=== PATIENT | male | born 2000 | race Hispanic/Latino ===

== ENCOUNTER 2024-03-22 08:31 | Inpatient (IN) | payer SELFPAY ==
[2024-03-22] MEDS ORDERED: Ketorolac Tromethamine 30 MG (1 mL) VIAL ONE (09:08)
[2024-03-22 09:24] LABS: #Basophils 0.09 10x3/uL (0.0-0.2); %Eosinophils 0.5 % (0.0-10.0); %Monocytes 9.1 % (0.0-10.0); %Neutrophils 78.1 % (42.0-75.0); Hematocrit 42.5 % (42.0-52.0); Hemoglobin 15.4 g/dL (14.0-18.0); Mean Corpuscular HGB CONC 36.2 g/dL (32.0-36.0); Mean Corpuscular Hemoglobin 33.2 pg (27.0-31.0); Mean Corpuscular Volume 91.6 fL (78.0-98.0); Mean Platelet Volume 9.2 fL (7.4-10.4); Platelet Count 344 10x3/uL (130-400); RBC Distribution Width 12.1 % (11.5-14.5); Red Blood Cell (RBC) Count 4.64 mill/uL (4.70-6.10)
[2024-03-22 09:40] LABS: ALT (SGPT) 37 U/L (8-55); AST (SGOT) 24 U/L (5-34); Albumin 3.6 g/dL (3.5-5.0); Alkaline Phosphatase 61 U/L (40-110); Anion Gap 15 mmol/L (10-20); BUN (Urea Nitrogen) 7 mg/dL (8.9-20.6); Bilirubin, Total 0.3 mg/dL (0.2-1.2); Calc. Creatinine Clearance 0 mL/min (70-130); Calcium 9.7 mg/dL (7.8-10.44); Carbon Dioxide 23 mmol/L (22-29); Chloride 101 mmol/L (98-107); Estimated GFR 125; Globulin 3.9 g/dL (2.4-3.5); Glucose 107 mg/dL (70-105); Potassium 3.5 mmol/L (3.5-5.1); Protein, Total 7.5 g/dL (6.0-8.3); Sodium 135 mmol/L (136-145)
[2024-03-22 09:45] LABS: Troponin I 0.015 ng/mL (< 0.028)
[2024-03-22] MEDS ORDERED: Iopamidol-370 76% 500 ML MDV (1 ML CHARGE) ONE (11:32)
[2024-03-22 12:15] LABS: Bacteria/HPF None Seen HPF (None Seen); Bilirubin Negative (Negative); Blood, Urine Negative (Negative); CAUTI Indications for Culture < 2yrs of age; Clarity Clear (Clear); Glucose, Urine (Dipstick) Normal (Negative); Ketone, Urine Negative (Negative); Leukocyte Negative Leu/uL (Negative); Nitrite Negative (Negative); Protein, Urine (Dipstick) Negative (Neg-Trace); RBC/HPF 0-3 HPF (0-3); Specific Gravity, Urine 1.044 (1.002-1.036); Squamous Epithelial None Seen HPF (0-3); Urobilinogen Normal mg/dL (Less than 2); WBC/HPF 0-3 HPF (0-3); pH, Urine 7.5 (5.0-9.0)
[2024-03-22 12:16] LABS: Urine Culture Reflex Yes Yes
[2024-03-22] MEDS: NS 0.9% w/ 20 MEQ KCL 1,000 ML/1,000 ML BAG IV SCH (16:02)
[2024-03-22] MEDS ORDERED: Acetaminophen 650 MG Suppository PR PRN (17:43)
[2024-03-22 18:45] VITALS: BMI 28.9
[2024-03-22 19:07] LABS: Influenza A by NAA Not Detected (NotDetected); Influenza B by NAA Not Detected (NotDetected); SARS-CoV-2 NAA Rapid Test Not Detected (NotDetected)
[2024-03-22 19:07] LABS: HIV (1/2) Antibody/Antigen NONREACTIVE (NonReactive); HIV 1/2 INDEX 0.05 S/CO (<1.00)
[2024-03-22 19:12] LABS: Legionella Urinary Ag Negative (Negative); Strep pneumo Urine Ag NEGATIVE (NEGATIVE)
[2024-03-22] MEDS: Acetaminophen 325 MG TAB PO PRN (20:00)
[2024-03-22] MEDS: Sodium Chloride 0.9% 500 ML IV SCH (21:35)
[2024-03-22] MEDS: Acetaminophen 325 MG TAB PO SCH (21:35)
[2024-03-22] MEDS: Cefepime 2 GM in Sodium Chloride 0.9% 100 ML IVPB SCH (22:07)
[2024-03-22 22:41] LABS: Amphetamine Detected (NotDetected); Barbiturates Screen Not Detected (NotDetected); Benzodiazepine Screen Not Detected (NotDetected); Cocaine Metabolite Screen Not Detected (NotDetected); Methadone Not Detected (NotDetected); Methamphetamine Detected (NotDetected); Opiate Screen Not Detected (NotDetected); Oxycodone Screen Not Detected (NotDetected); Phencyclidine (PCP) Not Detected (NotDetected); THC/Cannabinoid Screen Detected (NotDetected); Tricyclic Screen Not Detected (NotDetected)
[2024-03-22] MEDS: Vancomycin (BATCH) 2 GM in Premix 1 BAG IVPB SCH (22:42)
[2024-03-22] MEDS: Ibuprofen 200 MG TAB PO PRN (23:49)
[2024-03-23] MEDS: Vancomycin (BATCH) 1.25 GM in Premix 1 BAG IVPB SCH (06:33)
[2024-03-23 08:09] LABS: Vancomycin, Random 46.1 ug/mL (See Comment)
[2024-03-23] MEDS ORDERED: Vancomycin 1 GM in Premix 1 BAG IVPB SCH (09:00)
[2024-03-23 14:00] LABS: Reference Lab Name LABCORP
[2024-03-23] MEDS ORDERED: Vancomycin HCl 750 MG in Sodium Chloride 0.9% 250 ML 250 ML IVPB SCH (14:00)
[2024-03-23] MEDS ORDERED: Vancomycin (BATCH) 1.25 GM in Premix 1 BAG IVPB SCH (16:00)
[2024-03-23] MEDS: Ketorolac Tromethamine 30 MG (1 mL) VIAL IVP SCH (20:53)
[2024-03-23] MEDS: Sodium Chloride 0.9% 500 ML IV SCH (20:53)
[2024-03-23] MEDS: Doxycycline 100 MG CAP PO SCH (20:54)
[2024-03-24] MEDS: Ibuprofen 200 MG TAB PO PRN (05:39)
[2024-03-24] MEDS: traMADol HCl 50 MG TAB PO PRN (05:39)
[2024-03-24] MEDS ORDERED: Iopamidol-370 76% 500 ML MDV (1 ML CHARGE) ONE (07:38)
[2024-03-24 08:42] LABS: Hematocrit 41.9 % (42.0-52.0); Hemoglobin 14.8 g/dL (14.0-18.0); Mean Corpuscular HGB CONC 35.3 g/dL (32.0-36.0); Mean Corpuscular Hemoglobin 32.5 pg (27.0-31.0); Mean Corpuscular Volume 92.1 fL (78.0-98.0); Mean Platelet Volume 9.4 fL (7.4-10.4); Platelet Count 301 10x3/uL (130-400); RBC Distribution Width 12.2 % (11.5-14.5); Red Blood Cell (RBC) Count 4.55 mill/uL (4.70-6.10)
[2024-03-24 08:57] LABS: ALT (SGPT) 47 U/L (8-55); AST (SGOT) 37 U/L (5-34); Alkaline Phosphatase 68 U/L (40-110); Anion Gap 15 mmol/L (10-20); BUN (Urea Nitrogen) 9 mg/dL (8.9-20.6); Bilirubin, Total 0.2 mg/dL (0.2-1.2); Calc. Creatinine Clearance 148 mL/min (70-130); Calcium 8.9 mg/dL (7.8-10.44); Carbon Dioxide 24 mmol/L (22-29); Chloride 101 mmol/L (98-107); Estimated GFR 124; Globulin 3.8 g/dL (2.4-3.5); Glucose 103 mg/dL (70-105); Potassium 4.1 mmol/L (3.5-5.1); Protein, Total 6.8 g/dL (6.0-8.3); Sodium 136 mmol/L (136-145)
[2024-03-24 09:11] LABS: Band 9 % (5-11); Large Platelets 1.9 % (0-5); Lymphocytes 20 % (21-51); Metamyelocyte 1 % (0-0); Monocytes 8 % (0-10); Neutrophil 50 % (42-75); Platelet Adequacy Comment Platelets Normal; RBC Morphology Within Normal Limits; Reactive Lymphocytes 13 % (0-10)
[2024-03-24 10:24] LABS: HBCM Index 0.08 S/CO (0-0.79); HBsAg Index 0.41 S/CO (0-0.99); Hep A IgM AB NONREACTIVE (NonReactive); Hep A IgM S/CO 0.18 S/CO (0-0.79); Hep B Surf Ag NONREACTIVE S/CO (NonReactive); Hep C IgG Ab NONREACTIVE S/CO (NonReactive); Hep C Index 0.05 S/CO (0-0.79); Hepatitis B Core IgM Abs NONREACTIVE S/CO (NonReactive)
[2024-03-25] MEDS: Meropenem 1 GM in Sodium Chloride 0.9% 100 ML IVPB SCH ×2 (00:22→08:23)
[2024-03-25] MEDS ORDERED: Meropenem 1 GM in Sodium Chloride 0.9% 100 ML IVPB SCH (06:00)
[2024-03-25] MEDS: methylPREDNISolone Sod Succ 40 MG VIAL IVP SCH (08:23)
[2024-03-25 15:45] LABS: Reference Lab Name KARIUS LABORATORIES
[2024-03-25 15:46] LABS: Ref Lab Test Ordered KARIUS TEST
[2024-03-27 15:18] LABS: Cytoplasmic (C-ANCA) <1:20 titer (Neg:<1:20); Perinuclear (P-ANCA) <1:20 titer (Neg:<1:20)
[2024-03-28 04:38] LABS: QuantiFERON-TB Gold Plus Negative (Negative)
[2024-03-28 13:15] VITALS: BP 104/64; TEMP 99.8
[2024-03-28 13:24] LABS: ANA Symphony (Qualitative) Negative (Negative); ANA Symphony (Quantitative) 0.2 Ratio (< 0.7 Negative); EliA RAS New Method **** NEW METHOD ****; Jo-1 IgG Antibody Less than 0.3 EliAU/mL (<7 Negative); RNP70 IgG Antibody 0.6 EliAU/mL (<7 Negative); Rheumatoid Factor IgA Antibody 4.8 IU/mL (<14 Negative); Rheumatoid Factor IgM Antibody 1.1 IU/mL (<3.5 Negative)
[2024-03-30 15:37] LABS: Histoplasma Antigen - Urine Negative (<0.2 ng/mL)
== END 2024-03-28 13:59 | disposition home or self-care (01) | DRG 178 ==
LOC: ERS 08:31 → SURG B 14:48
PROVIDERS: ADMIT Internal Medicine; ATTEND Internal Medicine
DX: B39.2 Pulmonary histoplasmosis capsulati, unspecified (principal); D84.9 Immunodeficiency, unspecified; J67.9 Hypersensitivity pneumonitis due to unspecified organic dust; Z85.028 Personal history of other malignant neoplasm of stomach; F17.210 Nicotine dependence, cigarettes, uncomplicated; Z79.899 Other long term (current) drug therapy; F19.10 Other psychoactive substance abuse, uncomplicated
CPT/HCPCS: 36415; 71046; 71275; 74177; 80053; 80074; 80202; 80306; 81001; 83520; 83605; 84145; 84484; 85025; 85379; 86037; 86038; 86141; 86225; 86235; 86480; 87040; 87081; 87086; 87116; 87206; 87385; 87389; 87449; 87633; 87798; 87899; 93005; 93306; 96374; J0692; J1885; J2185; J2919; J3370; J3480; J7030; Q9967

== ENCOUNTER 2024-08-05 13:55 | Emergency (ER) | payer SELFPAY ==
[2024-08-05] MEDS ORDERED: Lidocaine 1% w/Epinephrine 1:100K 20 ML VIAL ONE (15:49)
[2024-08-05] MEDS ORDERED: Ibuprofen 200 MG TAB ONE (17:08)
[2024-08-05] MEDS ORDERED: Bacitracin 1 PK ONE (17:10)
== END 2024-08-05 17:36 ==
LOC: ERS 13:55
DX: S61.411A Laceration without foreign body of right hand, initial encounter (principal); Z75.8 Other problems related to medical facilities and other health care; W26.8XXA Contact with other sharp object(s), not elsewhere classified, initial encounter; Y93.E5 Activity, floor mopping and cleaning; Y92.149 Unspecified place in prison as the place of occurrence of the external cause
CPT/HCPCS: 12042